=== PATIENT | female | born 1950 | race Caucasian/White ===

== ENCOUNTER → 2019-11-03 | Outpatient (CLI) | payer MEDICARE, BC ==
--- NOTE | 2019-11-22 17:55 | REP ---
RIGHT WRIST SERIES: CLINICAL: Medial wrist pain. TECHNIQUE: AP, lateral, bilateral oblique views of the right wrist. FINDINGS: Generalized age related changes are appreciated. No acute fracture or dislocation. No overt focal arthritic changes. IMPRESSION: Generalized age related changes. No acute fracture or dislocation. MTDD
== END ==
LOC: M WUC 12:39
PROVIDERS: ATTEND Physician Assistant
DX: M25.531 Pain in right wrist (principal)